=== PATIENT | male | born 1960 | race Caucasian/White ===

== ENCOUNTER 2023-04-29 08:31 | Outpatient (CLI) | payer MEDICAID | END 2023-04-29 08:32 | disposition critical access hospital (66) | LOC: EMS 08:31 | DX: R51.9 Headache, unspecified (principal); R07.9 Chest pain, unspecified; R11.0 Nausea; R50.9 Fever, unspecified; R05.9 Cough, unspecified | CPT/HCPCS: A0425; A0427; A0999 ==

== ENCOUNTER 2023-04-29 08:59 | Emergency (ER) | payer MEDICAID ==
[2023-04-29] MEDS ORDERED: HYDROmorphone 1 MG/ML CARPUJECT IVP STA ×2 (09:14→10:53)
[2023-04-29] MEDS ORDERED: KETOROLAC 15 MG/ML VIAL IVP STA (09:14)
[2023-04-29] MEDS ORDERED: SODIUM CHLORIDE 0.9% 1,000 ML IV STA ×2 (09:14→10:53)
[2023-04-29] MEDS ORDERED: MECLIZINE 12.5 MG TABLET PO STA (09:14)
[2023-04-29] MEDS ORDERED: PROMETHAZINE INJ 25 MG in SODIUM CHLORIDE 0.9% 50 ML IV STA (09:16)
--- NOTE | 2023-04-29 09:16 | ED Physician Documentation ---
PD HPI URI - Stated complaint Stated Complaint: CP - Chief complaint Chief Complaint: General - History obtained from History obtained from: Patient, EMS - History of Present Illness Timing - onset: How many weeks ago (has had some myalgias and feeling weakness with some wheezing for a week or more, but owrse the past 2-3 days, with aches, headache, wheezing/cough. Has inhaler at home with some improvement.) Timing duration: Days (now with 1-2 days of increasing of his chronic headache, general body pains, feverish, dyspnea.) Timing details: Gradual onset, Still present Contributing factors: Sick contact (his was sick last week. No testing done.), COPD / asthma. No: Immunocompromised Worsened by: Activity Recently seen: Not recently seen Review of Systems Constitutional: reports: Fever, Chills, Myalgias, Fatigue Cardiac: denies: Chest pain / pressure Respiratory: reports: Dyspnea, Cough GI: reports: Nausea. denies: Abdominal Pain, Vomiting, Diarrhea Skin: denies: Rash, Lesions Neurologic: reports: Altered mental status (more agitated and forgetful from baseline.), Headache PD PAST MEDICAL HISTORY - Present Medications Home Medications: Ambulatory Orders Medication Instructions Recorded Confirmed Amitriptyline [Elavil] 10 - 30 mg PO QPM 04/29/23 04/29/23 Baclofen 20 mg PO Q8H PRN 04/29/23 04/29/23 Duloxetine HCl [Cymbalta] 60 mg PO DAILY PRN 04/29/23 04/29/23 Fluticasone 44 Mcg [Flovent] 2 puffs INH BID 04/29/23 04/29/23 Gabapentin [Neurontin] 600 mg PO TID 04/29/23 04/29/23 HYDROcod/ACETAM 5/325 [[place] 5/325] 1 ea PO Q6H PRN #15 tablet 04/29/23 ONDANSETRON ODT Prepack 2 [ZOFRAN 4 mg TL Q8H PRN 04/29/23 04/29/23 ODT Prepack 2] Omeprazole 40 mg PO DAILY 04/29/23 04/29/23 Ondansetron Odt [Zofran] 4 mg TL Q6H PRN #10 tablet 04/29/23 Rosuvastatin Calcium [Crestor] 20 mg PO HS 04/29/23 04/29/23 Sumatriptan Succinate [Imitrex] 50 mg PO DAILY PRN 04/29/23 04/29/23 cephALEXin [Keflex] 500 mg PO TID #15 cap 04/29/23 dexAMETHasone [Decadron] 4 mg PO DAILY #5 tablet 04/29/23 dilTIAZem HCL [Diltiazem 24Hr ER] 120 mg PO DAILY 04/29/23 04/29/23 - Allergies Allergies/Adverse Reactions: Allergies Allergy/AdvReac Type Severity Reaction Status Date / Time Penicillins Allergy Unknown Verified 04/29/23 09:12 PD ED PE NORMAL - Vitals Vital signs reviewed: Yes - General General: Alert and oriented X 3, Well developed/nourished - HEENT HEENT: Moist mucous membranes, Pharynx benign - Neck Neck: Supple, no meningeal sign, No adenopathy - Cardiac Cardiac: RRR, No murmur - Respiratory Respiratory: Clear bilaterally - Abdomen Abdomen: Normal bowel sounds, Soft, Non tender - Back Back: No CVA TTP - Derm Derm: Normal color, Warm and dry - Extremities Extremities: Normal ROM s pain, No calf tenderness / cord - Neuro Neuro: Alert and oriented X 3, No motor deficit, Normal speech Results - Vitals Vitals: Vital Signs - 24 hr 04/29/23 09:08 Temperature 36.6 C Heart Rate 112 H Respiratory 30 H Rate Blood Pressure 151/128 H O2 Saturation 100 - Labs Labs: Laboratory Tests 04/29/23 04/29/23 04/29/23 09:42 09:42 09:42 WBC 8.1 RBC 4.66 L Hgb 13.5 L Hct 41.2 L MCV 88.4 MCH 29.0 MCHC 32.8 RDW 13.6 Plt Count 265 MPV 8.8 Neut # (Auto) 6.0 Lymph # (Auto) 0.7 L [place] # (Auto) 1.1 H Eos # (Auto) 0.1 Baso # (Auto) 0.1 Absolute Nucleated RBC 0.00 Nucleated RBC % 0.0 Sodium 135 Potassium 3.5 Chloride 105 Carbon Dioxide 20 L Anion Gap 10.0 BUN 12 Creatinine 1.1 Estimated GFR (MDRD) 68 L Glucose 116 H Lactic Acid 1.8 Calcium 9.1 Magnesium 1.7 Total Bilirubin 0.6 AST 22 ALT 20 Alkaline Phosphatase 81 Total Protein 7.1 Albumin 4.4 Globulin 2.7 Albumin/Globulin Ratio 1.6 Lipase 42 Nasal Adenovirus (PCR) Nasal B. parapertussis DNA (PCR) Nasal Coronavir 229E PCR Nasal Coronavir HKU1 PCR Nasal Coronavir NL63 PCR Nasal Coronavir OC43 PCR Nasal Enterovir/Rhinovir PCR Nasal Influenza B PCR Nasal Influenza A PCR Nasal Parainfluen 1 PCR Nasal Parainfluen 2 PCR Nasal Parainfluen 3 PCR Nasal Parainfluen 4 PCR Nasal RSV (PCR) Nasal B.pertussis DNA PCR Nasal C.pneumoniae (PCR) Mark Human Metapneumo PCR Nasal M.pneumoniae (PCR) Nasal SARS-CoV-2 (PCR) 04/29/23 10:28 WBC RBC Hgb Hct MCV MCH MCHC RDW Plt Count MPV Neut # (Auto) Lymph # (Auto) [place] # (Auto) Eos # (Auto) Baso # (Auto) Absolute Nucleated RBC Nucleated RBC % Sodium Potassium Chloride Carbon Dioxide Anion Gap BUN Creatinine Estimated GFR (MDRD) Glucose Lactic Acid Calcium Magnesium Total Bilirubin AST ALT Alkaline Phosphatase Total Protein Albumin Globulin Albumin/Globulin Ratio Lipase Nasal Adenovirus (PCR) NOT DETECTED Nasal B. parapertussis DNA (PCR) NOT DETECTED Nasal Coronavir 229E PCR NOT DETECTED Nasal Coronavir HKU1 PCR NOT DETECTED Nasal Coronavir NL63 PCR NOT DETECTED Nasal Coronavir OC43 PCR NOT DETECTED Nasal Enterovir/Rhinovir PCR NOT DETECTED Nasal Influenza B PCR NOT DETECTED Nasal Influenza A PCR NOT DETECTED Nasal Parainfluen 1 PCR NOT DETECTED Nasal Parainfluen 2 PCR NOT DETECTED Nasal Parainfluen 3 PCR NOT DETECTED Nasal Parainfluen 4 PCR NOT DETECTED Nasal RSV (PCR) NOT DETECTED Nasal B.pertussis DNA PCR NOT DETECTED Nasal C.pneumoniae (PCR) NOT DETECTED Mark Human Metapneumo PCR NOT DETECTED Nasal M.pneumoniae (PCR) NOT DETECTED Nasal SARS-CoV-2 (PCR) DETECTED A - Rads (name of study) chest xray Relevant Findings:: Prelim report reviewed (no cardiopulmonary process. ), EMP independent interpretation of test head CT Relevant Findings:: Prelim report reviewed (no acute intracranial pathology. ), EMP independent interpretation of test PD Medical Decision Making - ED course Complexity details: reviewed results (has general viral illness type symptoms. Can get viral PCR. Having headache but no neck stiffness. Cough and wheezing without report of sputum. Has MDI at home with Dx of COPD. ), considered differential (seems acute infectious process, with likely viral underlying, but then concern of bacterial secondary with increased cough/wheeze, sinus draiange, feverish. ), d/w patient ED course: Some illness for a week or more and now with 1-2 days of fever, cough/wheezing, increased headache over baseline (chronic headache and migraines), general weakness, and diffuse arthralgias. He is restless with syumptoms on initial exam. He is improved focud and attention with interaction after given IV fluids, pain meds and antiemetics. He is having wheezing with underlying COPD, so gave neb treatment, steroids and will give antibiotic for concern of secondary infections. Timing could still be an acute COVID infection with prior aches another virus, so can given Paxlovid as well. He is more relaxed, interactive and conversant, not appearing in distress after IV fluids and meds, and nebulizer. He does not have neck stiffness, nodes, persisting headache, confusion. I consider LP but do not see it needed as not clinically NASCAR. Departure - Departure Disposition: 01 Home, Self Care Clinical Impression: COVID-19, Dyspnea, Acute headache with normal neurologic examination, Cough, Reactive airway disease Condition: Stable Instructions: ED Dyspnea Shortness of Breath, ED Viral Syndrome Prescriptions: dexAMETHasone [Decadron] 4 mg PO DAILY #5 tablet cephALEXin [Keflex] 500 mg PO TID #15 cap HYDROcod/ACETAM 5/325 [[place] 5/325] 1 ea PO Q6H PRN #15 tablet PRN Reason: Pain Ondansetron Odt [Zofran] 4 mg TL Q6H PRN #10 tablet PRN Reason: Nausea / Vomiting Comments: Your viral panel test is positive for COVID. This may have been going on over the last week or 2 with now exacerbating symptoms related to secondary bronchitis or sinus infection. Alternatively you may have had a different viral type illness recently and now COVID as well given your your acute symptoms. We can use the Paxlovid antiviral combination medications twice daily over the next 5 days given the possibility that the COVID is now an acute process with your current symptoms. We can add an cephalexin antibiotic as well for concern of bronchial or sinus infection on top the primary viral illness. Use your inhaler at home 2 to 3 puffs 4 times daily regularly for the next several days to week. We can add Decadron steroid to help with bronchial inflammation as well. Stay well-hydrated. Continue usual medicines. Add Tylenol 500 to 650 mg 4 times daily for the next several days to week to help with pains. Alternatively hydrocodone/acetaminophen if needed for worse pain or headaches in the short- term. Takes the Paxlovid antiviral medicine as directed by the box insert. I also prescribed ondansetron if needed for nausea. I sent your prescriptions to your preferred pharmacy, [facility] in [place]. Recheck if not improving well over the next few days and return if worse. I am prescribing a short course of narcotic pain medication for you. These are potentially dangerous and addictive medications that should be used carefully. These medications may constipate you. Take an [id number] stool softener such as docusate twice daily with plenty of water while taking these medicati ons. If you go 24 hours without a bowel movement, take ukyt-inn-[id number] MiraLAX, per package instructions. Do not drink or drive while taking these medications. If you received narcotic or sedating medications while in the emergency department do not drive for 24 hours. Store this medication in a safe, secure place and out of reach of children. It is a violation of federal law to give or sell this medication to another person or to use in a manner other than prescribed. The ED will not refill narcotic prescriptions, including prescriptions lost or stolen. You can dispose of unwanted medications at the [facility]'s office or at several pharmacies such as [facility]. Forms: PCP List Discharge Date/Time: 04/29/23 12:50
[2023-04-29 09:24] VITALS: BP 151/128; O2SAT 100
--- NOTE | 2023-04-29 09:35 | XRAY Report ---
PROCEDURE: Chest 1 View X-Ray INDICATIONS: chest pain TECHNIQUE: One view of the chest was acquired. COMPARISON: None. FINDINGS: Surgical changes and devices: None. Lungs and pleura: No pleural effusions or pneumothorax. Lungs are clear. Mediastinum: Mediastinal contours appear normal. Heart size is normal. Bones and chest wall: No suspicious bony lesions. Overlying soft tissues appear unremarkable. IMPRESSION: No acute cardiopulmonary process. Reviewed by: Cricket Bourne MD on 04/29/2023 9:34 AM PDT Approved by: Cricket Bourne MD on 04/29/2023 9:34 AM PDT Station ID: [id number]
[2023-04-29 09:47] LABS: BASOPHILS # (AUTO) 0.1 10^3/uL (0.0-0.1); BASOPHILS % (AUTO) 1.1 %; EOSINOPHILS # (AUTO) 0.1 10^3/uL (0.0-0.7); HCT - HEMATOCRIT 41.2 % (42.0-52.0); HGB - HEMOGLOBIN 13.5 g/dL (14.0-18.0); LYMPHOCYTES # (AUTO) 0.7 10^3/uL (1.5-3.5); LYMPHOCYTES % (AUTO) 9.2 %; MEAN CORPUSCULAR HGB CONC 32.8 g/dL (32.0-36.0); MEAN CORPUSCULAR VOLUME 88.4 fL (80.0-94.0); MEAN PLATELET VOLUME 8.8 fL (7.4-11.4); MONOCYTES # (AUTO) 1.1 10^3/uL (0.0-1.0); MONOCYTES % (AUTO) 13.7 %; NEUTROPHILS % (AUTO) 74.5 %; PLT - PLATELET COUNT 265 10^3/uL (130-450); RED BLOOD COUNT 4.66 10^6/uL (4.70-6.10); RED CELL DISTRIBUTION WIDTH 13.6 % (12.0-15.0); WHITE BLOOD COUNT 8.1 x10^3/uL (4.8-10.8)
[2023-04-29 09:59] LABS: ALBUMIN 4.4 g/dL (3.2-5.5); ALBUMIN/GLOBULIN RATIO 1.6 (1.0-2.2); BILIRUBIN,TOTAL 0.6 mg/dL (0.2-1.0); CALCIUM 9.1 mg/dL (8.5-10.3); CREATININE 1.1 mg/dL (0.6-1.3); MAGNESIUM 1.7 mg/dL (1.7-2.3); POTASSIUM 3.5 mmol/L (3.5-4.5); TOTAL PROTEIN 7.1 g/dL (6.4-8.9)
[2023-04-29] MEDS ORDERED: DEXAMETHASONE 10 MG/ML VIAL IVP STA (10:53)
--- NOTE | 2023-04-29 11:10 | CT Report ---
PROCEDURE: HEAD WO INDICATIONS: headache, viral illness; fall with struck head TECHNIQUE: Noncontrast 4.5 mm thick angled axial sections acquired from the foramen magnum to the vertex. For r adiation dose reduction, the following was used: automated exposure control, adjustment of mA and/or kV according to patient size. COMPARISON: None. FINDINGS: Image quality: Excellent. CSF spaces: Basal cisterns are patent. No extra-axial fluid collections. Ventricles are normal in size and shape. Brain: No midline shift. No intracranial masses or hemorrhage. Adam-white matter interface is norm al. Age-related global volume loss. Intracranial atherosclerotic vascular calcifications. Skull and face: Calvarium and visualized facial bones are intact, without suspicious lesions. Sinuses: Visualized sinuses and mastoids are clear. IMPRESSION: No acute intracranial pathology. Reviewed by: Sandro Martínez MD on 04/29/2023 11:09 AM PDT Approved by: Sandro Martínez MD on 04/29/2023 11:09 AM PDT Station ID: [id number]
[2023-04-29 11:20] LABS: B. PARAPERTUSSIS- RESP PCR PAN NOT DETECTED; B. PERTUSSIS- RESP PCR PANEL NOT DETECTED; C. PNEUMONIAE- RESP PCR PANEL NOT DETECTED; CORONAVIRUS 229E-RESP PCR NOT DETECTED; CORONAVIRUS HKU1-RESP PCR NOT DETECTED; CORONAVIRUS NL63-RESP PCR NOT DETECTED; CORONAVIRUS OC43-RESP PCR NOT DETECTED; HUMAN METAPNEUMOVIRUS NOT DETECTED; INFLUENZA A- RESP PCR PANEL NOT DETECTED; INFLUENZA B - RESP PCR PANEL NOT DETECTED; M. PNEUMONIAE- RESP PCR PANEL NOT DETECTED; PARAINFLUENZA VIRUS 1 NOT DETECTED; PARAINFLUENZA VIRUS 2 NOT DETECTED; PARAINFLUENZA VIRUS 3 NOT DETECTED; PARAINFLUENZA VIRUS 4 NOT DETECTED; RHINOVIRUS/ENTEROVIRUS NOT DETECTED; RSV- RESP PCR PANEL NOT DETECTED
[2023-04-29 11:22] LABS: SARS-CoV-2 -RESP PCR PANEL DETECTED
[2023-04-29] MEDS ORDERED: NIRMATRELVIR/RITONAVIR PREPACK PO STA (11:52)
[2023-04-29] MEDS ORDERED: cephALEXin 250 MG CAPSULE PO STA (11:52)
== END 2023-04-29 12:50 | disposition home or self-care (01) ==
LOC: ED 08:59
DX: U07.1 COVID-19 (principal); R51.9 Headache, unspecified; J45.909 Unspecified asthma, uncomplicated
CPT/HCPCS: 36415; 70450; 71045; 80053; 83605; 83690; 83735; 85025; 87633; 96365; 96375; 99284; A9270; J1170; J3490; J7040

== ENCOUNTER 2023-07-25 17:39 | Outpatient (CLI) | payer BC, MEDICAID | END 2023-07-25 17:40 | disposition critical access hospital (66) | LOC: EMS 17:39 | DX: R07.9 Chest pain, unspecified (principal); R42 Dizziness and giddiness; R06.02 Shortness of breath; R11.0 Nausea; S51.832A Puncture wound without foreign body of left forearm, initial encounter; W54.0XXA Bitten by dog, initial encounter; Y93.K9 Activity, other involving animal care; Y92.009 Unspecified place in unspecified non-institutional (private) residence as the place of occurrence of the external cause | CPT/HCPCS: A0425; A0429 ==

== ENCOUNTER 2023-07-25 18:18 | Emergency (ER) | payer BC, MEDICAID ==
[2023-07-25 19:09] LABS: BASOPHILS # (AUTO) 0.1 10^3/uL (0.0-0.1); BASOPHILS % (AUTO) 1.2 %; EOSINOPHILS # (AUTO) 0.3 10^3/uL (0.0-0.7); EOSINOPHILS % (AUTO) 2.5 %; HCT - HEMATOCRIT 43.2 % (42.0-52.0); HGB - HEMOGLOBIN 13.9 g/dL (14.0-18.0); LYMPHOCYTES # (AUTO) 1.6 10^3/uL (1.5-3.5); LYMPHOCYTES % (AUTO) 15.4 %; MEAN CORPUSCULAR HEMOGLOBIN 28.5 pg (27.0-31.0); MEAN CORPUSCULAR HGB CONC 32.2 g/dL (32.0-36.0); MEAN CORPUSCULAR VOLUME 88.5 fL (80.0-94.0); MEAN PLATELET VOLUME 8.9 fL (7.4-11.4); MONOCYTES # (AUTO) 0.9 10^3/uL (0.0-1.0); MONOCYTES % (AUTO) 8.7 %; NEUTROPHILS # (AUTO) 7.5 10^3/uL (1.5-6.6); NEUTROPHILS % (AUTO) 71.7 %; PLT - PLATELET COUNT 318 10^3/uL (130-450); RED BLOOD COUNT 4.88 10^6/uL (4.70-6.10); RED CELL DISTRIBUTION WIDTH 13.4 % (12.0-15.0); WHITE BLOOD COUNT 10.4 x10^3/uL (4.8-10.8)
[2023-07-25 19:20] LABS: ALBUMIN 4.1 g/dL (3.2-5.5); ALBUMIN/GLOBULIN RATIO 1.5 (1.0-2.2); BILIRUBIN,TOTAL 0.4 mg/dL (0.2-1.0); CALCIUM 9.3 mg/dL (8.5-10.3); CREATININE 1.1 mg/dL (0.6-1.3); POTASSIUM 3.8 mmol/L (3.5-4.5); TOTAL PROTEIN 6.8 g/dL (6.4-8.9)
[2023-07-25 19:25] LABS: TROPONIN I HIGH SENSITIVITY 2.7 ng/L (2.3-19.7)
[2023-07-25] MEDS ORDERED: AMOX/CLAV 875 MG/125 MG TABLET PO STA (19:40)
--- NOTE | 2023-07-25 19:42 | ED Physician Documentation ---
History of Present Illness - Stated complaint Stated Complaint: MARIA L GOMEZ - Chief complaint Chief Complaint: Cardiac - History obtained from History obtained from: Patient - Additonal information Additional information: 63-year-old male presented to the emergency department with left hand injury after breaking up a dog fight as well as chest pain radiating to the throat and belly that is since resolved along with some shortness of breath. Denies, hemoptysis, leg swelling, any other symptoms. PD PAST MEDICAL HISTORY - Past Medical History Past Medical History: Yes Cardiovascular: High cholesterol, Pulmonary embolism Neuro: Head injury, Other - Past Surgical History Past Surgical History: Yes Cardiovascular: Cardiac catheterization - Present Medications Home Medications: Ambulatory Orders Medication Instructions Recorded Confirmed Amitriptyline [Elavil] 10 - 30 mg PO QPM 04/29/23 04/29/23 Baclofen 20 mg PO Q8H PRN 04/29/23 04/29/23 Duloxetine HCl [Cymbalta] 60 mg PO DAILY PRN 04/29/23 04/29/23 Fluticasone 44 Mcg [Flovent] 2 puffs INH BID 04/29/23 04/29/23 Gabapentin [Neurontin] 600 mg PO TID 04/29/23 04/29/23 HYDROcod/ACETAM 5/325 [[place] 5/325] 1 ea PO Q6H PRN #15 tablet 04/29/23 ONDANSETRON ODT Prepack 2 [ZOFRAN 4 mg TL Q8H PRN 04/29/23 04/29/23 ODT Prepack 2] Omeprazole 40 mg PO DAILY 04/29/23 04/29/23 Ondansetron Odt [Zofran] 4 mg TL Q6H PRN #10 tablet 04/29/23 Rosuvastatin Calcium [Crestor] 20 mg PO HS 04/29/23 04/29/23 Sumatriptan Succinate [Imitrex] 50 mg PO DAILY PRN 04/29/23 04/29/23 cephALEXin [Keflex] 500 mg PO TID #15 cap 04/29/23 dexAMETHasone [Decadron] 4 mg PO DAILY #5 tablet 04/29/23 dilTIAZem HCL [Diltiazem 24Hr ER] 120 mg PO DAILY 04/29/23 04/29/23 Amox/Clav 875/125 [Augmentin 1 tablet PO Q12H 7 Days #14 tablet 07/25/23 875/125 Tab] - Allergies Allergies/Adverse Reactions: Allergies Allergy/AdvReac Type Severity Reaction Status Date / Time Penicillins Allergy Unknown Verified 04/29/23 09:12 - Social History Does the pt smoke?: No Smoking Status: Never smoker PD ED PE NORMAL - Vitals Vital signs reviewed: Yes - General General: Alert and oriented X 3, No acute distress, Well developed/nourished - HEENT HEENT: Atraumatic, PERRL, EOMI - Neck Neck: Supple, no meningeal sign - Cardiac Cardiac: RRR - Respiratory Respiratory: No respiratory distress, Clear bilaterally - Abdomen Abdomen: Non tender, Non distended - Derm Derm: Normal color, Warm and dry, Other (Abrasion to left hand without palpable foreign body. nontender) - Extremities Extremities: Other (2+ radial pulse LUE) Results - Vitals Vitals: Vital Signs - 24 hr 07/25/23 18:19 Temperature 37.2 C Heart Rate 74 Respiratory 13 Rate Blood Pressure 117/74 O2 Saturation 99 Oxygen O2 Source Room air - Labs Labs: Laboratory Tests 07/25/23 07/25/23 19:00 19:00 WBC 10.4 RBC 4.88 Hgb 13.9 L Hct 43.2 MCV 88.5 MCH 28.5 MCHC 32.2 RDW 13.4 Plt Count 318 MPV 8.9 Neut # (Auto) 7.5 H Lymph # (Auto) 1.6 [place] # (Auto) 0.9 Eos # (Auto) 0.3 Baso # (Auto) 0.1 Absolute Nucleated RBC 0.00 Nucleated RBC % 0.0 Sodium 137 Potassium 3.8 Chloride 105 Carbon Dioxide 27 Anion Gap 5.0 L BUN 10 Creatinine 1.1 Estimated GFR (MDRD) 68 L Glucose 77 Calcium 9.3 Total Bilirubin 0.4 AST 17 ALT 14 Alkaline Phosphatase 90 Troponin I High Sens 2.7 Total Protein 6.8 Albumin 4.1 Globulin 2.7 Albumin/Globulin Ratio 1.5 Lipase 45 PD Medical Decision Making - ED course ED course: 63 y M Presents with dog bite to the left hand as well as for medical evaluation for having chest pain, shortness of breath while breaking up a dog fight. His workup here in the emergency department including CBC, abdominal panel, troponin, EKG, and chest x-ray were normal. Cardiac monitoring unremarkable. Antibiotics sent to pharmacy. He states that he has tolerated Augmentin in the past without issue and previously only had a rash to penicillins without itchiness or other allergic symptoms. Tdap up-to-date. animals were vaccinated against rabies. Strict return precautions given. Plan to follow-up with primary care provider. Departure - Departure Disposition: 01 Home, Self Care Clinical Impression: Chest pain, Shortness of breath, Dog bite Condition: Stable Instructions: ED Bite Dog Prescriptions: Amox/Clav 875/125 [Augmentin 875/125 Tab] 1 tablet PO Q12H 7 Days #14 tablet Comments: You were seen in the emergency department for dog bite and medical evaluation. Your ekg, chest xray and labwork were normal. Antibiotics were sent to [facility]. Please follow-up with your primary care provider and return to the emergency department if you have any new or worsening symptoms or other concerns.
--- NOTE | 2023-07-25 19:42 | XRAY Report ---
PROCEDURE: Chest 1V INDICATIONS: Chest pain TECHNIQUE: One view of the chest was acquired. COMPARISON: 04/29/2023. FINDINGS: Surgical changes and devices: None. Lungs and pleura: No pleural effusions or pneumothorax. Lungs are clear. Mediastinum: Mediastinal contours appear normal. Heart size is normal. Bones and chest wall: No suspicious bony lesions. Overlying soft tissues appear unremarkable. IMPRESSION: No acute cardiopulmonary process. Reviewed by: Roberto Michel MD on 07/25/2023 7:41 PM PST Approved by: Roberto Michel MD on 07/25/2023 7:41 PM PST Station ID: [id number]
[2023-07-25 20:06] VITALS: BP 117/79; O2SAT 97
== END 2023-07-25 19:55 | disposition home or self-care (01) ==
LOC: EDUNIT# → ED 18:18
DX: R07.9 Chest pain, unspecified (principal); R06.02 Shortness of breath; S60.512A Abrasion of left hand, initial encounter; W54.0XXA Bitten by dog, initial encounter; Y93.K9 Activity, other involving animal care; Y92.009 Unspecified place in unspecified non-institutional (private) residence as the place of occurrence of the external cause
CPT/HCPCS: 36415; 80053; 83690; 84484; 85025; 93005; 99284

== ENCOUNTER 2023-11-20 08:07 | Emergency (ER) | payer BC, MEDICAID ==
--- NOTE | 2023-11-20 09:00 | ED Physician Documentation ---
PD HPI LOWER EXT INJURY - Stated complaint Stated Complaint: LT FOOT PX - Chief complaint Chief Complaint: Trauma Ext - History obtained from History obtained from: Patient - Additional information Additional information: Patient is a 63-year-old male with a prior history of traumatic brain injury and a chronic gait issues presenting for evaluation of left ankle and left chest wall pain after a trip and fall 1 and half weeks ago over a baby gate. Patient denies hitting his head or having LOC. He reports pain is primarily pain in the left lateral ankle. He has not tried anything for his pain. He reports having some pain in the left ribs but that is improving. He denies chest pain otherwise or shortness of air. No abdominal symptoms. No headache.Does not take blood thinners. Review of Systems Cardiac: denies: Chest pain / pressure Respiratory: denies: Dyspnea Musculoskeletal: reports: Extremity pain Neurologic: denies: Headache PD PAST MEDICAL HISTORY - Past Medical History Past Medical History: Yes Cardiovascular: High cholesterol, Pulmonary embolism Respiratory: Asthma Neuro: Head injury, Peripheral neuropathy, Other Endocrine/Autoimmune: Other GI: GERD, Other : Other Psych: Anxiety, Post traumatic stress disorder Musculoskeletal: Osteoarthritis, Gout, Chronic back pain, Other Derm: None - Past Surgical History Past Surgical History: Yes Ortho: Arthroscopic surgery, Other Cardiovascular: Cardiac catheterization - Present Medications Home Medications: Ambulatory Orders Medication Instructions Recorded Confirmed Fluticasone 44 Mcg [Flovent] 2 puffs INH BID 04/29/23 11/20/23 Gabapentin [Neurontin] 600 mg PO TID 04/29/23 11/20/23 ONDANSETRON ODT Prepack 2 [ZOFRAN 4 mg TL Q8H PRN 04/29/23 11/20/23 ODT Prepack 2] Omeprazole 40 mg PO DAILY 04/29/23 11/20/23 Sumatriptan Succinate [Imitrex] 50 mg PO DAILY PRN 04/29/23 11/20/23 Buspirone HCl 10 mg PO DAILY 11/20/23 11/20/23 metFORMIN [Glucophage] 500 mg PO DAILY 11/20/23 11/20/23 - Allergies Allergies/Adverse Reactions: Allergies Allergy/AdvReac Type Severity Reaction Status Date / Time Penicillins Allergy Unknown Verified 11/20/23 08:16 - Social History Does the pt smoke?: No Smoking Status: Former smoker Does the pt drink ETOH?: No - Immunizations Immunizations are current?: No Immunizations: Other immun not current - POLST Patient has POLST: No PD ED PE NORMAL - General General: Alert and oriented X 3, No acute distress, Well developed/nourished - HEENT HEENT: Atraumatic - Neck Neck: Supple, no meningeal sign - Cardiac Cardiac: RRR, Strong equal pulses, Other (Mild left lateral chest wall tenderness, no bruising or crepitus or deformities) - Respiratory Respiratory: No respiratory distress, Clear bilaterally - Abdomen Abdomen: Normal bowel sounds, Soft, Non tender, Non distended - Derm Derm: Warm and dry - Extremities Extremities: Other (Tenderness to left lateral ankle with no edema, distal pulses intact, no tenderness over foot bones,Motor and sensation intact in the left leg, no tenderness more proximally) Results - Vitals Vitals: Vital Signs - 24 hr 11/20/23 11/20/23 08:16 09:24 Temperature 36 C L 36 C L Heart Rate 73 73 Respiratory 18 17 Rate Blood Pressure 146/102 H 126/81 H O2 Saturation 100 99 Oxygen O2 Source Room air PD Medical Decision Making - ED course Complexity details: reviewed results, d/w patient ED course: Patient is a 63-year-old male with a fall 1-1/2 weeks ago presenting for left ankle and left-sided chest wall pain. No head injury and does not take blood thinners. He has been ambulating. X-rays were obtained of the chest as well as left ankle with no signs of fracture dislocation or pneumothorax. Patient was placed into an Aircast. Counseled on continued supportive care as well as need for follow-up if symptoms or not improving. Departure - Departure Disposition: 01 Home, Self Care Clinical Impression: Left ankle sprain, Left-sided chest wall pain Condition: Stable Instructions: ED Contusion Rib, ED Sprain Ankle Comments: The x-ray of your ankle as well as your chest do not show signs of a broken bone. Please continue with anti-inflammatory such as acetaminophen. I have also given you an Aircast to help provide support to the ankle joint. If your symptoms or not getting better I would recommend follow-up with your primary care provider. Forms: PCP List Discharge Date/Time: 11/20/23 09:25
--- NOTE | 2023-11-20 09:03 | XRAY Report ---
PROCEDURE: Ankle 3+V LT INDICATIONS: fall 1.5 weeks ago/pain laterally TECHNIQUE: 3 views of the ankle were acquired. COMPARISON: None. FINDINGS: Bones: No fractures or dislocations. Ankle mortise is normally aligned. No suspicious bony lesions . Soft tissues: No tibiotalar joint effusion. Achilles tendon appears normal. IMPRESSION: No acute bony abnormality. Reviewed by: Cricket Bourne MD on 11/20/2023 9:02 AM PDT Approved by: Cricket Bourne MD on 11/20/2023 9:02 AM PDT Station ID: [id number]
--- NOTE | 2023-11-20 09:03 | XRAY Report ---
PROCEDURE: Chest 1V INDICATIONS: FALL 1.5 WEEKS AGO/PAIN TO L CHEST WALL TECHNIQUE: One view of the chest was acquired. COMPARISON: 07/25/2023 FINDINGS: Surgical changes and devices: None. Lungs and pleura: No pleural effusions or pneumothorax. Lungs are clear. Mediastinum: Mediastinal contours appear normal. Heart size is normal. Bones and chest wall: No suspicious bony lesions. Overlying soft tissues appear unremarkable. IMPRESSION: No acute cardiopulmonary process. Reviewed by: Cricket Bourne MD on 11/20/2023 9:02 AM PDT Approved by: Cricket Bourne MD on 11/20/2023 9:02 AM PDT Station ID: [id number]
[2023-11-20 09:28] VITALS: BP 126/81; O2SAT 99
== END 2023-11-20 09:25 | disposition home or self-care (01) ==
LOC: ED 08:07
DX: S93.402A Sprain of unspecified ligament of left ankle, initial encounter (principal); R07.89 Other chest pain; W01.0XXA Fall on same level from slipping, tripping and stumbling without subsequent striking against object, initial encounter; E78.00 Pure hypercholesterolemia, unspecified; Z79.899 Other long term (current) drug therapy; Z79.84 Long term (current) use of oral hypoglycemic drugs; Z87.891 Personal history of nicotine dependence
CPT/HCPCS: 99283; 99284

== ENCOUNTER 2024-03-09 07:11 | Outpatient (CLI) | payer MEDICARE, MEDICAID ==
--- NOTE | 2024-03-09 16:31 | MRI Report ---
Ankle LT WO CLINICAL HISTORY: 63 years of age, Male, LT ANKLE SYNOVITIS. COMPARISON: None Technique: Multisequence, multiplanar MRI of the left ankle was performed without contrast. IV CONTRAST: Not given FINDINGS: Tendons: Mild tenosynovitis of the posterior tibialis. The flexor digitorum longus and the flexor esther luces longus are unremarkable. The extensor tendons are unremarkable. The peroneal brevis and the per dyson longus tendon are unremarkable. Mild tendinosis of the distal Achilles tendon, without tear. Ligaments: The anterior and posterior tibiofibular ligaments are intact. The anterior talofibular lig ament is diminutive, likely representing prior sprain. The posterior talofibular ligament is intact.T he calcaneofibular ligament is unremarkable. Mild sprain of the deep portion of the deltoid ligament. Sinus Tarsi: Normal signal without evidence of inflammatory change or fibrosis. Plantar fascia: Normal signal and morphology without evidence of inflammation or tear. Muscles: Visualized intrinsic foot musculature demonstrates normal signal and bulk. Bones and cartilage: No marrow edema. No fractures. No osteochondral lesions.Cystic changes/cystic [place] about the lateral aspect of the medial cuneiform, partially visualized, measuring approximately 1.0 cm (7:1). Miscellaneous: Tarsal tunnel appears normal. No significant effusion. Diffuse subcutaneous edema of the ankle. IMPRESSION: 1.Mild tendinosis of distal Achilles tendon without tear. 2.Prior sprain of the anterior talofibular ligament and deep portion of the deltoid ligament. 3.1.0 cm cystic changes/cystic lesion about the lateral aspect of the medial cuneiform, partially vis ualized. Reviewed by: Raiza Mac MD on 03/09/2024 4:29 PM PDT Approved by: Raiza Mac MD on 03/09/2024 4:29 PM PDT Station ID: [id number]
== END 2024-03-09 07:12 | disposition home or self-care (01) ==
LOC: DI 07:11
PROVIDERS: ATTEND Podiatrist Foot & Ankle Surgery
DX: M67.972 Unspecified disorder of synovium and tendon, left ankle and foot (principal); M25.872 Other specified joint disorders, left ankle and foot

== ENCOUNTER 2024-03-24 19:53 | Outpatient (CLI) | payer MEDICARE, MEDICAID ==
--- NOTE | 2024-03-24 21:53 | XRAY Report ---
PROCEDURE: Hand 3+V RT INDICATIONS: CONTUSION OF RIGHT HAND TECHNIQUE: 3 views of the hand acquired. COMPARISON: None. FINDINGS: Bones: No acute fractures or dislocations. No suspicious bony lesions. Scattered mild degenerativ e changes in the interphalangeal joints of the fingers. Soft tissues: No suspicious soft tissue calcifications. IMPRESSION: No acute osseous abnormality. If there is clinical concern or persistent symptoms, additional imaging such as repeat radiographs or advanced imaging (e.g. CT, MRI) may be helpful for further evaluation. Reviewed by: Gerhard Lam MD on 03/24/2024 8:52 PM DIOR Approved by: Gerhard Lam MD on 03/24/2024 8:52 PM DIOR Station ID: [id number]
== END 2024-03-24 19:54 | disposition home or self-care (01) ==
LOC: DI 19:53
PROVIDERS: ATTEND Registered Nurse
DX: M19.041 Primary osteoarthritis, right hand (principal); S60.221A Contusion of right hand, initial encounter; S63.8X1A Sprain of other part of right wrist and hand, initial encounter